=== PATIENT | female | born 1990 | race African-American/Black ===

== ENCOUNTER 2022-01-07 16:52 | Emergency (ER) | payer MEDICARE, MEDICAID ==
[~2022-01-07] VITALS: Ht 157.5 cm; Wt 57.0 kg
[2022-01-07 17:05] VITALS: BP 139/96
[2022-01-07] MEDS ORDERED: ACET-2708 MT (20:42)
[2022-01-07] MEDS ORDERED: METO5TAB86 MT (20:42)
[2022-01-07] MEDS ORDERED: ACETAMINOPHEN 325MG TABLET PO ONE (20:45)
[2022-01-07] MEDS ORDERED: METOCLOPRAMIDE HCL 5MG TABLET PO ONE (20:45)
== END 2022-01-07 20:53 | disposition home or self-care (01) ==
LOC: ER 16:52
DX: S09.8XXA Other specified injuries of head, initial encounter (principal); S06.0X0A Concussion without loss of consciousness, initial encounter; X58.XXXA Exposure to other specified factors, initial encounter; Y93.89 Activity, other specified; Y92.89 Other specified places as the place of occurrence of the external cause; Y99.8 Other external cause status; I10 Essential (primary) hypertension
CPT/HCPCS: 93005; 99284; J8597

== ENCOUNTER 2023-07-15 11:30 | Emergency (ER) | payer MEDICARE, MEDICAID ==
[~2023-07-15] VITALS: Ht 162.6 cm; Wt 55.0 kg
[~2023-07-15 11:30] MED LIST: ACET-2708 MT; METO5TAB86 MT
[2023-07-15 12:37] VITALS: O2SAT 99
[2023-07-15] MEDS ORDERED: IBUPROFEN 600MG TABLET PO ONE (13:45)
[2023-07-15 14:38] LABS: ALANINE AMINOTRANSFERASE 65 IU/L (10-49); ALBUMIN 4.5 g/dL (3.2-4.8); ASPARTATE AMINOTRANSFERASE 45 IU/L (<34); BILIRUBIN TOTAL 1.5 mg/dL (0.1-1.0); CALCIUM 9.4 mg/dL (8.7-10.4); CARBON DIOXIDE 25 mEq/L (21-32); CHLORIDE 102 mEq/L (98-107); CREATININE 0.6 mg/dL (0.6-1.0); GLUCOSE 100 mg/dL (70-105); POTASSIUM 3.8 mEq/L (3.5-5.1); SODIUM 135 mEq/L (136-145); UREA NITROGEN BLOOD 8 mg/dL (9-23)
[2023-07-15 14:43] LABS: BASOPHILS % 0.2 % (0.0-2.0); EOSINOPHILS % 0.1 % (0.0-5.0); HEMATOCRIT. 35.3 % (36.0-48.0); HEMOGLOBIN. 11.7 g/dL (12.0-16.0); MEAN CORPUSCULAR HGB CONC 33.3 g/dL (31.0-37.0); MEAN CORPUSCULAR VOLUME 87.1 fL (81.0-99.0); MEAN PLATELET VOLUME 9.7 fl (7.4-10.4); MONOCYTES % 9.8 % (2.0-8.0); NEUTROPHILS % 80.9 % (40.0-76.0); PLATELET 290 x1000/uL (130-400); RED BLOOD CELL COUNT 4.06 mill/uL (4.2-5.4); RED CELL DISTRIBUTION WIDTH 13.3 % (11.6-14.6); WHITE BLOOD COUNT 15.3 x1000/uL (4.5-11.0)
[2023-07-15] MEDS ORDERED: ACETAMINOPHEN 325MG TABLET PO ONE (15:15)
[2023-07-15 16:08] VITALS: BP 125/82; PULSE 107; RESP 20; TEMP 99.1
[2023-07-15] MEDS ORDERED: CIPHCO LEFT EAR (16:08)
[2023-07-15] MEDS ORDERED: IBUP-2029 MT (16:08)
[2023-07-15] MEDS ORDERED: AMOX1TAB16 MT (16:08)
[2023-07-15] MEDS ORDERED: AZIT250T12 MT (16:08)
== END 2023-07-15 16:15 | disposition home or self-care (01) ==
LOC: ER 11:37
DX: J18.9 Pneumonia, unspecified organism (principal); H60.92 Unspecified otitis externa, left ear
CPT/HCPCS: 36415; 71045; 80053; 81025; 85025; 99284